=== PATIENT | female | born 1960 | race Caucasian/White ===

== ENCOUNTER 2017-10-29 10:22 | Day surgery (SDC) | payer SELFPAY ==
[2017-10-25 14:35] VITALS: BMI 40.1
[2017-10-29] MEDS ORDERED: BUPIVACAINE HCL/PF 2.5 MG/ML - 30 ML VIAL IJ ONE (11:21)
[2017-10-29] MEDS ORDERED: GENTAMICIN SO4 80 MG/2 ML VIAL ONE (11:21)
[2017-10-29] MEDS ORDERED: POLYMYXIN B SULFATE 500,000 UNIT VIAL ONE (11:22)
[2017-10-29] MEDS ORDERED: ePHEDrine SULFATE 50 MG/1 ML AMPULE ONE (11:37)
[2017-10-29] MEDS ORDERED: PROPOFOL 20 ML ONE (11:38)
[2017-10-29] MEDS ORDERED: fentaNYL CITRATE 250 MCG/5 ML VIAL ONE (11:38)
[2017-10-29] MEDS ORDERED: ROCURONIUM BROMIDE 50 MG/5 ML VIAL ONE (11:38)
[2017-10-29] MEDS ORDERED: MIDAZOLAM HCL 2 MG/2 ML SINGLE DOSE VIAL ONE (11:52)
[2017-10-29] MEDS ORDERED: ONDANSETRON 4 MG/2 ML VIAL ONE (12:18)
[2017-10-29] MEDS ORDERED: DEXAMETHASONE SOD PHOSPHATE 4 MG/1 ML VIAL ONE (12:18)
[2017-10-29] MEDS ORDERED: ONDANSETRON 4 MG/2 ML VIAL IVPUSH PRN (13:53)
[2017-10-29] MEDS ORDERED: HYDROmorphone HCL CARPU-JECT 2 MG/1 ML DISP.SYRIN IVPB PRN (13:53)
[2017-10-29] MEDS ORDERED: oxyCODONE HCL 5 MG TABLET PO PRN (13:53)
--- NOTE | 2017-10-29 13:57 | OP ---
Operative Note - Note: Operative Date: 10/29/17 Pre-Operative Diagnosis: Morbid Obesity Operation: Laparoscopic Gastric Band Findings: 30 cc proximal gastric pouch created with APL band Implants: Gastric Band plus sub-Q port Post-Operative Diagnosis: Same as Pre-op Surgeon: Mode Greenfield Rehab Tech: Vinny Feldman Anesthesia: General Estimated Blood Loss (mls): 30 Operative Report Dictated: Yes
[2017-10-29] MEDS ORDERED: SODIUM CHLORIDE 1,000 ML IV SCH (14:00)
[2017-10-29] MEDS ORDERED: PROMETHAZINE HCL 25 MG/1 ML VIAL ONE (14:03)
[2017-10-29] MEDS ORDERED: FAMOTIDINE 20 MG PREMIXED IVPB IVPB ONE (14:06)
[2017-10-29] MEDS ORDERED: LACTATED RINGERS SOLUTION 1,000 ML IV SCH (14:15)
[2017-10-29] MEDS ORDERED: PROMETHAZINE HCL 25 MG/1 ML VIAL IVPB ONE (14:33)
[2017-10-29 14:34] LABS: HEMATOCRIT 37.9 % (32.4-45.2); HEMOGLOBIN 12.8 GM/dl (10.7-15.3); MCH 28.2 pg (25.7-33.7); MCHC 33.8 g/dl (32.0-36.0); MEAN CELL VOLUME 83.7 fl (80-96); MEAN PLT VOLUME 6.8 fl (7.5-11.1); PLATELET COUNT 250 K/MM3 (134-434); RBC 4.53 M/mm3 (3.60-5.2); RDW 13.8 % (11.6-15.6)
[2017-10-29 14:39] LABS: ANION GAP 8 (8-16); BLOOD UREA NITROGEN 13 mg/dl (7-18); CALCIUM 8.5 mg/dl (8.4-10.2); CHLORIDE 105 mmol/L (98-107); CO2 26 mmol/L (22-28); GLUCOSE,RANDOM 131 mg/dl (74-106); POTASSIUM 4.1 mmol/L (3.5-5.1); SODIUM 139 mmol/L (136-145)
[2017-10-29] MEDS ORDERED: PROMETHAZINE HCL 25 MG/1 ML VIAL IVPUSH ONE (14:43)
[2017-10-29 16:51] VITALS: PULSE 76
[2017-10-29 17:38] VITALS: BP 122/74; TEMP 98
--- NOTE | 2017-10-29 19:27 | OP ---
DATE OF OPERATION: 10/29/2017 PREOPERATIVE DIAGNOSIS: Morbid obesity. POSTOPERATIVE DIAGNOSIS: Morbid obesity. PROCEDURE PERFORMED: 1. Gastric band for gastric restriction. 2. Diagnostic laparoscopy. OPERATING SURGEON: Mode Greenfield MD COAL FEEDER OPERATOR: Vinny Feldman MD ANESTHESIA: General. OPERATIVE PROCEDURE: The patient brought into the operating room, placed on the OR table in the supine position. All precautions were taken initially including padding for the back and the feet, and Venodyne boots were placed on both lower extremities. At that point, the abdomen was prepped and draped in the usual manner. A Veress needle was placed in the left upper quadrant, and a pneumoperitoneum was established. A number 12 bladeless trocar was placed in the left upper quadrant. Through that trocar, a laparoscopic camera was placed. Under direct vision, number 5 and 15 bladeless trocars were placed in the right upper quadrant, and a number 12 bladeless trocar below the left costal margin. A Anand liver retractor was then placed in the epigastrium to retract the left lobe of the liver. The patient was then placed in a 20-degree reverse Trendelenburg position by Anesthesia. As the media center assistant surgeon retracted the omentum inferiorly from the left upper quadrant, the operating surgeon pulled the fundus of the stomach toward the patient's right side. This exposed the left esophagogastric junction. Electrocautery was used to score the peritoneum over the left esophagogastric junction, and this continued superiorly until the left valentín of the diaphragm was noted. The stomach was then pulled to the patient's left side by the media center assistant surgeon as the caudate lobe of the liver was located. An opening was made in the avascular plane. Then, hemoclips were used to open up the avascular plane up towards the right esophagogastric junction. The right valentín of the diaphragm was noted in the peritoneum anterior to it was scored with electrocautery. The laparoscopic instruments were then used to make a blunt tunnel from the right to the left valentín until it was free in the left upper quadrant of the abdomen. The gastric band, which was an AP large band, was then prepped by the OR team, placed in the number 15 port site. The band tubing was placed with the laparoscopic instrument which was pulled and withdrawn to the patient's right side. The band tubing was placed into the band buckle, which was tied or cinched down, and the band was then rotated to the patient's right side. Our laparoscopic instrument easily fit between the band and the anterior stomach wall. The band was then sewn in place with the Endostitch, used to grab a bite of stomach serosa above and below the band, and tied over the band. When it was completed, the band tubing was brought out of the number 15 port site, and under direct vision, all trocars were removed, and pneumoperitoneum was released. The right upper quadrant number 15 site was then extended laterally with a scalpel, and dissection continued with electrocautery down to the right anterior rectus muscle fascia. Next, 2-0 Prolene sutures were placed on all 4 sites, and the port was then attached to the right anterior rectus muscle. All trocar sites then received 0.25% Marcaine and antibiotic irrigation, were closed with 4-0 Biosyn in a subcuticular fashion. The port site was first closed with 3-0 Vicryl on the subcutaneous tissue, followed by 4-0 Biosyn on the subcuticular tissue. Dressings were applied. The patient was awoken from anesthesia and transferred out of the operating room to the recovery room in stable condition. EXPECTED BLOOD LOSS: 30 mL Sapna [id number]
[2017-10-29] MEDS ORDERED: FAMOTIDINE 20 MG/50 ML IVPB 20 MG/50 ML MG IVPB SCH (22:00)
== END 2017-10-29 17:35 | disposition home or self-care (01) ==
LOC: FASU 10:22
PROVIDERS: ATTEND Surgery
PROC: 0DV64CZ Restriction of Stomach with Extraluminal Device, Percutaneous Endoscopic Approach (ICD-10-PCS; principal; 2017-10-29 12:36)
DX: E66.01 Morbid (severe) obesity due to excess calories (principal); Z68.41 Body mass index [BMI] 40.0-44.9, adult
CPT/HCPCS: 36415; 74241-TC-FY; 80048; 84703; 85027; 94760

== ENCOUNTER 2023-07-26 09:03 | Emergency (ER) | payer OTHER ==
[2023-07-26 09:32] VITALS: BP 104/80; PULSE 83; RESP 18; TEMP 97.9; BMI 34.0
[2023-07-26 10:54] LABS: ALBUMIN 3.9 g/dl (3.4-5.0); BILIRUBIN,TOTAL 1.1 mg/dl (0.2-1); CALCIUM 9.1 mg/dl (8.5-10.1); POTASSIUM 3.5 mmol/L (3.5-5.1); TOT PROT 6.6 g/dl (6.4-8.2)
== END 2023-07-26 11:38 | disposition home or self-care (01) ==
LOC: FER 09:03
DX: R19.7 Diarrhea, unspecified (principal); R74.01 Elevation of levels of liver transaminase levels
CPT/HCPCS: 36415; 80053; 87045; 87046; 87186; 87209; 87324; 87449; 99283-25